=== PATIENT | male | born 1980 | race Caucasian/White ===

== ENCOUNTER 2021-12-10 20:59 | Emergency (ER) | payer MEDICAID, OTHER ==
[2021-12-10 22:09] LABS: BLOOD UREA NITROGEN,BUN 12 mg/dL (7.0-18.0); CARBON DIOXIDE,CO2 27.4 mmol/L (21.0-32.0); CHLORIDE,CL 101 mmol/L (98-107); GLUCOSE RANDOM 141 mg/dL (74-106); SODIUM,NA 137 mmol/L (136-148)
== END 2021-12-10 22:58 | disposition home or self-care (01) ==
LOC: MW.ED 20:59 → EDSEX 20:59 → MW.ED 22:58
DX: F15.10 Other stimulant abuse, uncomplicated (principal); Z20.822 Contact with and (suspected) exposure to COVID-19; W22.8XXA Striking against or struck by other objects, initial encounter
CPT/HCPCS: 36415; 70450; 70450-26; 80053; 80305-QW; 80307; 81003; 85025; 93005; 93010; 99284; 99284-25; U0002